=== PATIENT | female | born 1965 ===

== ENCOUNTER 2017-12-30 08:06 | Outpatient (CLI) | payer OTHER ==
[~2017-12-30] VITALS: Ht 160 cm; Wt 57.6 kg
== END 2017-12-30 08:15 | disposition home or self-care (01) ==
LOC: OFIC 805 08:06
DX: J32.0 Chronic maxillary sinusitis (principal); G51.8 Other disorders of facial nerve

== ENCOUNTER 2017-12-30 10:04 | Outpatient (CLI) | payer OTHER | END 2017-12-30 10:24 | disposition home or self-care (01) | LOC: LAB 10:04 | DX: M27.2 Inflammatory conditions of jaws (principal) ==

== ENCOUNTER 2018-01-02 13:52 | Outpatient (CLI) | payer OTHER | END 2018-01-02 14:10 | disposition home or self-care (01) | LOC: TOM 13:52 | DX: J32.4 Chronic pansinusitis (principal); M27.2 Inflammatory conditions of jaws ==

== ENCOUNTER 2018-01-12 08:54 | Outpatient (CLI) | payer OTHER ==
[~2018-01-12] VITALS: Ht 152.4 cm; Wt 57.6 kg
== END 2018-01-12 09:15 | disposition home or self-care (01) ==
LOC: OFIC 805 08:54
DX: J32.0 Chronic maxillary sinusitis (principal); K00.8 Other disorders of tooth development